=== PATIENT | male | born 1985 | race Caucasian/White ===

== ENCOUNTER 2020-02-27 22:38 | Inpatient (IN) | payer BC, MEDICAID ==
[~2020-02-27] VITALS: Ht 182.9 cm; Wt 117.3 kg
[2020-02-27 23:21] LABS: Basophils # (auto) 0.1 10 ^3/uL (0-0.2); Eosinophils # (auto) 0.1 10 ^3/uL (0-0.8); Eosinophils % (auto) 1.5 % (0.0-7.0); Hematocrit 44.6 % (41.0-53.0); Hemoglobin 15.2 g/dL (13.5-17.5); Lymphocytes # (auto) 2.4 10 ^3/uL (0.4-5.4); Lymphocytes % (auto) 25.2 % (10.0-50.0); Mean Corpuscular Hemoglobin 31.8 pg (28.0-32.0); Mean Corpuscular Hgb Conc. 34.2 g/dL (32.0-36.0); Monocytes # (auto) 0.7 10 ^3/uL (0-1.3); Monocytes % (auto) 7.2 % (0.0-12.0); Neutrophils # (auto) 6.2 10 ^3/uL (1.6-8.6); Neutrophils % (auto) 65.1 % (37.0-80.0); Nucleated Red Blood Cells % 0.1 %; Platelet Count (auto) 226 10^3/uL (140-450); White Blood Cell 9.5 10^3/uL (4.4-10.8)
[2020-02-27 23:39] LABS: Albumin 3.5 g/dL (3.4-5.0); Calcium 8.2 mg/dL (8.5-10.1); Potassium 3.6 mmol/L (3.5-5.1)
[2020-02-27 23:42] LABS: BUN/Creatinine Ratio 24.5; Bilirubin, Total 0.1 mg/dL (0.2-1.0)
[2020-02-27] MEDS ORDERED: ASPirin 81 mg TAB PO ONE (23:45)
[2020-02-27 23:54] LABS: Magnesium 1.9 mg/dL (1.6-2.6)
[2020-02-28] VITALS (7 sets, daily range): BP systolic 108–139; BP diastolic 63–74
[2020-02-28 00:06] LABS: INR 1.03 (0.9-1.15); Partial Thromboplastin Time 26.6 sec (23.64-32.05)
[2020-02-28] MEDS ORDERED: ONDANSETRON HCL 4 MG/2 ML VIAL IV PRN (03:15)
[2020-02-28] MEDS ORDERED: ACETAMINOPHEN 325 MG TAB PO PRN (03:15)
[2020-02-28] MEDS ORDERED: MORPHINE SULF INJ 2 MG/ML SYRINGE 1ML IV PRN (03:15)
[2020-02-28] MEDS ORDERED: NITROGLYCERIN 0.4 MG SL TAB SL PRN (03:15)
[2020-02-28] MEDS ORDERED: TEMAZEPAM 15 MG CAP PO PRN (03:15)
[2020-02-28 03:38] LABS: Urine Bacteria NONE SEEN /hpf (None Seen); Urine Blood Negative /uL (Negative); Urine Hyaline Cast FEW /lpf (0 - 2); Urine Mucus FEW (None Seen); Urine Specific Gravity 1.017 (1.001-1.035); Urine WBC 1 /hpf (0 - 3)
--- NOTE | 2020-02-28 04:00 | NUR ---
Telemetry admit from ER KAPIL VERA JR admitted to Telemetry unit after SBAR received. Patient oriented to Smiley robbins RN, unit, room, bed, and unit policies regarding patient care and visiting hours. Patient now on continuous telemetry monitoring, tele box # [id number] and telemetry reading on arrival to unit is 98 in afib. Patient weighed by bedscale and encouraged to call if they need something. All questions and concerns addressed, patient verbalized understanding.
[2020-02-28 04:16] LABS: Amphetamine Screen, Urine NEGATIVE (NEGATIVE); Barbiturate Scree,Urine NEGATIVE (NEGATIVE); Benzodiazephine Screen, Urine NEGATIVE (NEGATIVE); Cannabinoid Screen, Urine NEGATIVE (NEGATIVE); Cocaine Screen, Urine NEGATIVE (NEGATIVE); Opiate Scree,Urine NEGATIVE (NEGATIVE); Phencyclidine Screen, Urine NEGATIVE (NEGATIVE)
--- NOTE | 2020-02-28 05:02 | NUR ---
Scars Patient has a history of 22 surgeries over his legs and body. Scars noted and are intact, no open wounds noted.
--- NOTE | 2020-02-28 05:05 | NUR ---
Orthostatic vitals Laying: BP- 113/71, pulse 110 Sitting:BP- 121/76, pulse 105 Standing: BP- 120/62, pulse 107 patient reports no pain.
--- NOTE | 2020-02-28 06:48 | NUR ---
Closing note Patient asleep, in the lowest possible position with bed rails up x2 and call light within reach. Will endorse to day shift RN.
--- NOTE | 2020-02-28 07:19 | NUR ---
Opening Shift Note Assumed care of patient, resting in bed with eyes closed. No S/S of distress/SOB or pain. Bed is set in lowest locked position with side rails up x 2 for safety and call light is within reach, will continue to monitor for changes Q1hr and PRN.
[2020-02-28 08:41] LABS: Cholesterol 166 mg/dL (< 200)
[2020-02-28 08:44] LABS: HDL Cholesterol 41 mg/dL (40-59); LDL Cholesterol 98 mg/dL (< 100); Triglycerides 116 mg/dL (< 150)
[2020-02-28] MEDS: FAMOTIDINE 20 MG TAB PO SCH ×2 (09:43→21:49)
[2020-02-28] MEDS: METOPROLOL TARTRATE 25 MG TAB PO SCH ×2 (09:43→21:51)
[2020-02-28] MEDS: ASPirin 81 mg TAB PO SCH (09:43)
[2020-02-28] MEDS ORDERED: ASPirin 81 mg TAB PO SCH (10:00)
--- NOTE | 2020-02-28 12:45 | NUR ---
at bedside for cardiology consultation Dr. Luna.
--- NOTE | 2020-02-28 19:00 | NUR ---
Opening Shift Note Assumed care of patient, awake and alert. No S/S of distress/SOB or pain. Instructed on POC and to call for assist PRN, will continue to monitor for changes Q1hr and PRN.
[2020-02-28] MEDS ORDERED: LORazepam 2MG/ML-1ML VIAL IV PRN (21:15)
[2020-02-28] MEDS: ATORVASTATIN 20 MG TAB PO SCH (21:50)
[2020-02-29] VITALS (10 sets, daily range): BP systolic 104–132; BP diastolic 60–87
[2020-02-29 05:30] LABS: Basophils # (auto) 0 10 ^3/uL (0-0.2); Basophils % (auto) 0.7 % (0.0-2.0); Eosinophils # (auto) 0.1 10 ^3/uL (0-0.8); Eosinophils % (auto) 1.3 % (0.0-7.0); Hematocrit 42.9 % (41.0-53.0); Hemoglobin 14.6 g/dL (13.5-17.5); Lymphocytes # (auto) 2.2 10 ^3/uL (0.4-5.4); Lymphocytes % (auto) 29.9 % (10.0-50.0); Mean Corpuscular Volume 94.2 fL (80.0-100.0); Monocytes # (auto) 0.6 10 ^3/uL (0-1.3); Monocytes % (auto) 8.7 % (0.0-12.0); Neutrophils # (auto) 4.4 10 ^3/uL (1.6-8.6); Neutrophils % (auto) 59.4 % (37.0-80.0); Nucleated Red Blood Cells % 0.1 %; Platelet Count (auto) 215 10^3/uL (140-450); Red Blood Cells 4.56 10^6/uL (4.5-5.90); Red Cell Distribution Width 14.4 % (11.8-14.3); White Blood Cell 7.4 10^3/uL (4.4-10.8)
[2020-02-29 05:56] LABS: BUN/Creatinine Ratio 21.6; Calcium 8.3 mg/dL (8.5-10.1); Potassium 4.1 mmol/L (3.5-5.1)
--- NOTE | 2020-02-29 07:30 | NUR ---
Opening Shift Note Assumed care of patient, awake and alert. No S/S of distress/SOB or pain. Instructed on POC and to call for assist PRN, will continue to monitor for changes Q1hr and PRN. Bed in low and locked position, rails up x2, no-slip socks on.
[2020-02-29] MEDS: FAMOTIDINE 20 MG TAB PO SCH ×2 (08:54→22:03)
[2020-02-29] MEDS: ASPirin 81 mg TAB PO SCH (08:54)
[2020-02-29] MEDS: METOPROLOL TARTRATE 25 MG TAB PO SCH ×2 (08:55→22:03)
--- NOTE | 2020-02-29 09:45 | NUR ---
[employer] AT BEDSIDE
--- NOTE | 2020-02-29 10:23 | NUR ---
EEG- ELECTROENCEPHALOGRAM COMPLETED ON 02/29/2020.
--- NOTE | 2020-02-29 11:12 | NUR ---
DR Chely JURADO AT BEDSIDE NEW ORDERS ADDED FOR LEVOTHYROXINE TO BE INITIATED TOMORROW.
[2020-02-29] MEDS ORDERED: LEVOTHYROXINE SODIUM 50 MCG TAB PO ONE (11:15)
--- NOTE | 2020-02-29 11:16 | NUR ---
LEFT MESSAGE WITH TALIA SALGADO PER DR JURADO PATIENT IS SELF PAY DUE TO ISSUES WITH INSURANCE CHANGES, WAS ON RIDER PREVIOUSLY AND SWITCH FOR [employer] DURING OPEN ENROLLMENT IN JANUARY BUT HAS YET TO RECEIVE NEW CARD AND INSURANCE INFORMATION.
--- NOTE | 2020-02-29 11:50 | NUR ---
DR CAO AT BEDSIDE
[2020-02-29] MEDS: ATORVASTATIN 20 MG TAB PO SCH (22:01)
[2020-03-01 05:18] VITALS: BP 115/66
[2020-03-01] MEDS ORDERED: LEVOTHYROXINE SODIUM 50 MCG TAB PO SCH (07:00)
--- NOTE | 2020-03-01 08:15 | NUR ---
Opening Shift Note Assumed care of patient, awake, alert and oriented. No S/S of distress/SOB or pain. Instructed on POC and to call for assist PRN. Bed locked, in lowest position, call light within reach. Will continue to monitor for changes Q1hr and PRN.
[2020-03-01 09:00] VITALS: BP 112/71
[2020-03-01] MEDS: FAMOTIDINE 20 MG TAB PO SCH (10:18)
[2020-03-01] MEDS: ASPirin 81 mg TAB PO SCH (10:18)
[2020-03-01] MEDS: METOPROLOL TARTRATE 25 MG TAB PO SCH (10:18)
[2020-03-01 10:57] VITALS: BP 150/95
[2020-03-01] MEDS ORDERED: ASPITAB37 PO (12:35)
[2020-03-01] MEDS ORDERED: IBUP200C3 PO (12:35)
[2020-03-01] MEDS ORDERED: MULT-228 PO (12:35)
[2020-03-01 13:00] VITALS: BP 127/83
--- NOTE | 2020-03-01 16:10 | NUR ---
SUMI DENISE AT BEDSIDE.
--- NOTE | 2020-03-01 16:38 | NUR ---
SPOKE WITH DOCTOR JURADO, INFORMED HIM OF PATIENT'S WISHES TO LEAVE AMA.
--- NOTE | 2020-03-01 16:39 | NUR ---
AMA Note KAPIL VERA JR states they want to leave the hospital Against Medical Advice (AMA). Patient encouraged to stay for further treatment/stabilization. Patient advised of the risks and benefits of leaving AMA. Patient verbalized understanding. Patient encouraged to return to the ER if symptoms do not improve or worsen.
== END 2020-03-01 16:30 | disposition left against medical advice (07) | DRG 312 ==
LOC: EDBD 22:38 → ER 22:38 → TELE-WESTW 22:39
PROVIDERS: ADMIT Nurse Practitioner; ATTEND Family Medicine
DX: R55 Syncope and collapse (principal); I49.5 Sick sinus syndrome; E03.9 Hypothyroidism, unspecified; E66.9 Obesity, unspecified; Z68.35 Body mass index [BMI] 35.0-35.9, adult; E86.0 Dehydration; F10.10 Alcohol abuse, uncomplicated; F17.290 Nicotine dependence, other tobacco product, uncomplicated; I10 Essential (primary) hypertension; E78.00 Pure hypercholesterolemia, unspecified; I48.91 Unspecified atrial fibrillation; M10.9 Gout, unspecified; Z80.1 Family history of malignant neoplasm of trachea, bronchus and lung; Z83.3 Family history of diabetes mellitus; Z85.118 Personal history of other malignant neoplasm of bronchus and lung; V89.2XXA Person injured in unspecified motor-vehicle accident, traffic, initial encounter
CPT/HCPCS: 36415; 70450; 70551; 71045; 72125; 73502; 78452; 80048; 80053; 80061; 80307; 80320; 81001; 83735; 83880; 84443; 84484; 85025; 85610; 85730; 93005; 93017; 93306; 93886; 95819; G0378